=== PATIENT | female | born 2000 | race African-American/Black ===

== ENCOUNTER 2022-05-24 14:27 | Emergency (ER) | payer BC ==
[~2022-05-24] VITALS: Ht 172.7 cm; Wt 105.7 kg
[2022-05-24] MEDS ORDERED: PREDNISONE50 MG PO (16:45)
[2022-05-24] MEDS ORDERED: ONDANSETRON ODT4 MG PO (16:46)
== END 2022-05-24 16:58 | disposition home or self-care (01) ==
LOC: FSED 14:44
DX: R53.1 Weakness (principal); G35 Multiple sclerosis; H53.8 Other visual disturbances; J45.909 Unspecified asthma, uncomplicated
CPT/HCPCS: 81003; 81025; 99282

== ENCOUNTER 2024-07-27 09:03 | Inpatient (IN) | payer BC ==
[~2024-07-27] VITALS: Ht 172.7 cm; Wt 113.4 kg
[~2024-07-27 09:03] MED LIST: ONDANSETRON ODT4 MG PO; PREDNISONE50 MG PO
[2024-07-27 12:08] VITALS: BP 143/93; PULSE 127; RESP 19; TEMP 98.5; O2SAT 99
[2024-07-27] MEDS ORDERED: ALBUTEROL/IPRATROPIUM 3 ML NEB NEB PRN (12:45)
[2024-07-27] MEDS ORDERED: DOCUSATE SODIUM 100 MG CAP PO PRN (12:45)
[2024-07-27 12:57] VITALS: BP 143/93; PULSE 127; RESP 19; TEMP 98.5; O2SAT 99
[2024-07-27 13:03] VITALS: BP 143/93; PULSE 127; RESP 19; TEMP 98.5; O2SAT 99
[2024-07-27] MEDS ORDERED: LIDOCAINE HCL 1% 30ML-PF VIAL ONE (13:33)
[2024-07-27] MEDS ORDERED: VANCOMYCIN HCL 1.25 GM in SODIUM CHLORIDE 0.9% 250ML 250 ML IV SCH (14:00)
[2024-07-27] MEDS: HYDROMORPHONE 1MG/1ML INJ IV PRN (15:41)
[2024-07-27 16:18] VITALS: BP 154/107; PULSE 121; RESP 19; TEMP 98.1; O2SAT 99
[2024-07-27] MEDS: HYDROMORPHONE 1MG/1ML INJ ONE (16:20)
[2024-07-27] MEDS: ONDANSETRON HCL INJ 2MG/ML 2ML 2 MG/ML VIAL IV PRN (16:57)
[2024-07-27] MEDS: ENOXAPARIN SOD INJ 40 MG/0.4 ML SYR SC SCH (16:58)
[2024-07-27] MEDS ORDERED: BOTOX100 UNIT IV ×2 (17:01)
[2024-07-27] MEDS ORDERED: MIRALAX17 GM PO (17:01)
[2024-07-27] MEDS ORDERED: ZYRTEC10 M3 (17:01)
[2024-07-27] MEDS ORDERED: VITAMIN D31250 MCG (17:01)
[2024-07-27] MEDS ORDERED: MECLIZINE HCL12.5 MG PO (17:01)
[2024-07-27] MEDS ORDERED: TRANSDERM-SCOP1 EACH TD (17:01)
[2024-07-27] MEDS ORDERED: MAXALT10 MG (17:01)
[2024-07-27] MEDS ORDERED: AMBIEN5 MG PO (17:01)
[2024-07-27] MEDS ORDERED: BACLOFEN10 MG PO (17:01)
[2024-07-27] MEDS ORDERED: METHOCARBAMOL750 MG PO (17:01)
[2024-07-27] MEDS ORDERED: ONDANSETRON ODT8 MG PO (17:01)
[2024-07-27] MEDS ORDERED: BENADRYL25 M1 PO (17:01)
[2024-07-27] MEDS ORDERED: REMERON30 MG PO (17:01)
[2024-07-27] MEDS ORDERED: PULMICORT2 M1 (17:01)
[2024-07-27] MEDS ORDERED: MODAFINIL100 MG PO (17:01)
[2024-07-27] MEDS ORDERED: ALBUTEROL1.25 MG/3 NEB (17:01)
[2024-07-27] MEDS ORDERED: HYDROXYZIN10 MG/5 ML PO (17:01)
[2024-07-27] MEDS ORDERED: SYMBICORT 16010.2 GM INH (17:01)
[2024-07-27] MEDS ORDERED: DOXEPIN HCL25 MG PO (17:01)
[2024-07-27] MEDS ORDERED: PEPCID20 MG PO (17:01)
[2024-07-27] MEDS ORDERED: PROMETHAZINE HC25 M1 PO (17:01)
[2024-07-27] MEDS ORDERED: ATIVAN1 MG PO (17:01)
[2024-07-27] MEDS ORDERED: OMEPRAZOLE40 MG PO (17:01)
[2024-07-27 19:18] VITALS: BP 148/101; PULSE 128; RESP 18; TEMP 100.1; O2SAT 100
[2024-07-27 21:00] VITALS: BP 148/101; PULSE 128; RESP 18; TEMP 100.1; O2SAT 100
[2024-07-27] MEDS: VANCOMYCIN HCL 1.25 GM in SODIUM CHLORIDE 0.9% 250ML 250 ML IV SCH (22:30)
[2024-07-27] MEDS: ACETAMINOPHEN 325 MG TAB PO PRN (22:31)
[2024-07-27] MEDS: METOPROLOL TARTRATE INJ 1 MG/ML VIAL IV PRN (22:32)
[2024-07-27] MEDS: MELATONIN 3 MG TAB PO PRN (23:38)
[2024-07-28] VITALS (11 sets, daily range): BP systolic 113–160; BP diastolic 74–110; PULSE 72–138; RESP 17–22; TEMP 97.7–99.8; O2SAT 95–100
[2024-07-28] MEDS: LORATADINE 10 MG TAB PO SCH (12:37)
[2024-07-28] MEDS: ONDANSETRON HCL 4 MG ORAL DISINTEGRATING TAB PO PRN (18:19)
[2024-07-28] MEDS: ACETAMINOPHEN/CODEINE 300MG - 30MG TAB PO PRN (18:19)
[2024-07-28] MEDS: HYDROXYZINE HCL 25 MG TAB PO PRN (18:56)
[2024-07-28] MEDS: ALPRAZOLAM 0.5 MG TAB PO PRN (20:13)
[2024-07-29 08:13] VITALS: PULSE 88; RESP 20; O2SAT 97
[2024-07-29 09:33] VITALS: BP 113/74; PULSE 88; RESP 20; TEMP 98.6; O2SAT 97
[2024-07-29 12:10] VITALS: BP 124/79; PULSE 122; RESP 20; TEMP 97.6; O2SAT 100
[2024-07-29 15:06] VITALS: PULSE 97; RESP 20; O2SAT 97
[2024-07-29] MEDS ORDERED: DOXYCYCLINE HY100 MG PO (17:14)
[2024-07-29] MEDS ORDERED: TYLENOL325 MG PO (17:15)
[2024-07-29 17:37] VITALS: BP 122/95; PULSE 117; RESP 20; TEMP 98.2; O2SAT 100
[2024-07-29] MEDS: DOXYCYCLINE HYCLATE TABLET 100 MG TAB PO SCH (17:51)
== END 2024-07-29 21:01 | disposition home or self-care (01) | DRG 314 ==
LOC: MED/SURG2 11:59
PROVIDERS: ADMIT Internal Medicine; ATTEND Internal Medicine
PROC: 3E0333Z Introduction of Anti-inflammatory into Peripheral Vein, Percutaneous Approach (ICD-10-PCS; principal; 2024-07-27)
DX: T82.7XXA Infection and inflammatory reaction due to other cardiac and vascular devices, implants and grafts, initial encounter (principal); A41.1 Sepsis due to other specified staphylococcus; G35 Multiple sclerosis; G89.4 Chronic pain syndrome; J45.909 Unspecified asthma, uncomplicated; M79.7 Fibromyalgia; F43.10 Post-traumatic stress disorder, unspecified; F32.A Depression, unspecified; G47.00 Insomnia, unspecified; F90.9 Attention-deficit hyperactivity disorder, unspecified type
CPT/HCPCS: 74470; 87070; 93005; 94799; J0692; J1171; J1650; J2003; J2405; J3410; J7050; Q0162

== ENCOUNTER 2025-02-16 13:27 | Inpatient (IN) | payer BC ==
[~2025-02-16] VITALS: Ht 172.7 cm; Wt 119.5 kg
[~2025-02-16 13:27] MED LIST changes: +ALBUTEROL1.25 MG/3 NEB; +AMBIEN5 MG PO; +ATIVAN1 MG PO; +BACLOFEN10 MG PO; +BENADRYL25 M1 PO; +BOTOX100 UNIT IV; +DOXEPIN HCL25 MG PO; +DOXYCYCLINE HY100 MG PO; +HYDROXYZIN10 MG/5 ML PO; +MAXALT10 MG; +MECLIZINE HCL12.5 MG PO; +METHOCARBAMOL750 MG PO; +MIRALAX17 GM PO; +MODAFINIL100 MG PO; +OMEPRAZOLE40 MG PO; +ONDANSETRON ODT8 MG PO; +PEPCID20 MG PO; +PROMETHAZINE HC25 M1 PO; +PULMICORT2 M1; +REMERON30 MG PO; +SYMBICORT 16010.2 GM INH; +TRANSDERM-SCOP1 EACH TD; +TYLENOL325 MG PO; +VITAMIN D31250 MCG; +ZYRTEC10 M3
[2025-02-16] MEDS ORDERED: IVIG (14:00)
[2025-02-16] MEDS ORDERED: RITUXAN10 MG/1 ML (14:00)
[2025-02-16] MEDS: ONDANSETRON HCL INJ 2MG/ML 2ML 2 MG/ML VIAL IV STA (14:52)
[2025-02-16] MEDS: Morphine 4mg INJECTION 4 MG/ML INJ IV ONE (14:53)
[2025-02-16] MEDS: SODIUM CHLORIDE 0.9% 1000ML 1,000 ML IV ONE (14:53)
[2025-02-16] MEDS: DIPHENHYDRAMINE HCL INJ 50 MG/ML VIAL IV PRN (14:54)
[2025-02-16] MEDS ORDERED: Morphine 2mg Syringe 2 MG/ML SYR ONE (15:55)
[2025-02-16] MEDS: Morphine 2mg Syringe 2 MG/ML SYR IV ONE ×2 (16:02→17:28)
[2025-02-16] MEDS: DIPHENHYDRAMINE HCL INJ 50 MG/ML VIAL IV STA ×2 (16:19→17:27)
[2025-02-16] MEDS ORDERED: HYDROCODON-ACE1 EA11 PO ×2 (17:13→17:15)
[2025-02-16] MEDS: CYCLOBENZAPRINE HCL 10 MG TAB PO ONE (17:28)
[2025-02-16 17:29] VITALS: PULSE 100; RESP 16; TEMP 98.5
[2025-02-16] MEDS ORDERED: SODIUM CHLORIDE FLUSH 10 ML SYR INJ PRN (18:00)
[2025-02-16] MEDS ORDERED: HYDROMORPHONE 1MG/1ML INJ IV PRN (18:00)
[2025-02-16 20:00] VITALS: BP 150/86; PULSE 114; RESP 18; TEMP 97.9; O2SAT 97
[2025-02-16] MEDS: SODIUM CHLORIDE 0.9% 1000ML 1,000 ML IV SCH (20:24)
[2025-02-16] MEDS: HYDROMORPHONE 1MG/1ML INJ IV PRN (20:25)
[2025-02-16] MEDS: ONDANSETRON HCL INJ 2MG/ML 2ML 2 MG/ML VIAL IV PRN (20:29)
[2025-02-16] MEDS ORDERED: LEXAPRO5 MG PO (20:50)
[2025-02-16] MEDS ORDERED: BENADRYL25 M1 PO (20:51)
[2025-02-16] MEDS ORDERED: CAPSAICIN42.5 GM TOP (20:51)
[2025-02-16] MEDS ORDERED: VOLTAREN ARTHRI20 GM TP (20:51)
[2025-02-16] MEDS ORDERED: LYRICA150 MG PO (20:51)
[2025-02-16] MEDS ORDERED: BACLOFEN20 MG PO (20:51)
[2025-02-16] MEDS ORDERED: MELATONIN3 MG PO (20:51)
[2025-02-16 20:53] VITALS: BP 150/86; PULSE 114; RESP 18; TEMP 97.9; O2SAT 97
[2025-02-16] MEDS: Morphine 4mg INJECTION 4 MG/ML INJ IV PRN (22:29)
[2025-02-17] VITALS (11 sets, daily range): BP systolic 115–170; BP diastolic 86–114; PULSE 72–108; RESP 18–20; TEMP 97.2–98.2; O2SAT 95–100
[2025-02-17] MEDS: Morphine 2mg Syringe 2 MG/ML SYR IV PRN (04:40)
[2025-02-17] MEDS: DIPHENHYDRAMINE HCL INJ 50 MG/ML VIAL IV PRN (06:23)
[2025-02-17] MEDS: FAMOTIDINE 20 MG TAB PO SCH (07:43)
[2025-02-17] MEDS: BACLOFEN 10 MG TAB PO SCH (07:43)
[2025-02-17] MEDS: PREGABALIN 75 MG CAP PO SCH (07:44)
[2025-02-17] MEDS: ESCITALOPRAM OXALATE 10 MG TAB PO SCH (08:26)
[2025-02-17] MEDS: CAPSAICIN TOP SCH (08:26)
[2025-02-17 09:14] LABS: BASOPHILS % 0.2 % (0.0-1.0); EOSINOPHILS % 0.1 % (0.0-6.0); LYMPHOCYTES % 12.6 % (18.0-39.1); MONOCYTES % 9.7 % (4.4-11.3); NEUTROPHILS % 72.7 % (38.7-80.0); RED CELL DISTRIBUTION WIDTH 15.4 % (11.7-14.4)
[2025-02-17 09:47] LABS: EST GLOMERULAR FILTRATION RATE 132.0 ML/MIN (>=60)
[2025-02-17] MEDS: HYDROMORPHONE 1MG/1ML INJ IV PRN (12:29)
[2025-02-17] MEDS ORDERED: GADOBENATE DIMEGLUMINE 1 ML IV ONE (12:48)
[2025-02-17 12:53] LABS: T3 UPTAKE 34.2 % (22.5-37.0)
[2025-02-17] MEDS: LORAZEPAM INJ 2 MG/ML VIAL IV ONE (14:15)
[2025-02-17] MEDS ORDERED: METHYLPREDNISOLONE SOD SUCC 1,000 MG/8 ML VIAL IV SCH (14:15)
[2025-02-17] MEDS: DIPHENHYDRAMINE HCL INJ 50 MG/ML VIAL IV ONE (14:15)
[2025-02-17] MEDS: ACETAZOLAMIDE SODIUM 500 MG/VIAL IV SCH (18:09)
[2025-02-17] MEDS: METHYLPREDNISOLONE SOD SUCC 1,000 MG in SODIUM CHLORIDE 0.9% 250ML 250 ML IV SCH (18:29)
[2025-02-17] MEDS: MIRTAZAPINE 15 MG TAB PO SCH (21:13)
[2025-02-17] MEDS: MELATONIN 3 MG TAB PO SCH (21:13)
[2025-02-18] VITALS: BP 132/102; PULSE 83; RESP 18; TEMP 98; O2SAT 98
[2025-02-18] MEDS: HYDROCODONE/APAP 10MG-325MG TAB PO PRN (04:25)
[2025-02-18] MEDS ORDERED: METHYLPREDNISOLONE SOD SUCC 1,000 MG/8 ML VIAL IV SCH (09:00)
== END 2025-02-18 05:09 | disposition short-term general hospital (02) | DRG 59 ==
LOC: FSED 13:32 → MED/SURG3 17:57 → UNDOADMOB 18:03 → MED/SURG3 18:05 → UNDOADMOB 18:05 → OBSVTOIN 02-17 11:02
PROVIDERS: ADMIT Family Medicine Adult Medicine; ATTEND Family Medicine Adult Medicine
DX: G35.D Multiple sclerosis, unspecified (principal); M87.88 Other osteonecrosis, other site; Z68.41 Body mass index [BMI] 40.0-44.9, adult; G43.909 Migraine, unspecified, not intractable, without status migrainosus; I16.0 Hypertensive urgency; G93.2 Benign intracranial hypertension; E66.01 Morbid (severe) obesity due to excess calories; H53.8 Other visual disturbances; K58.9 Irritable bowel syndrome, unspecified; M25.561 Pain in right knee; M79.7 Fibromyalgia; G50.0 Trigeminal neuralgia; D57.3 Sickle-cell trait; J45.909 Unspecified asthma, uncomplicated; F43.10 Post-traumatic stress disorder, unspecified; Z86.711 Personal history of pulmonary embolism; Z86.718 Personal history of other venous thrombosis and embolism
CPT/HCPCS: 36415; 70553; 72156; 80048; 80053; 81025; 84436; 84443; 84479; 84702; 85025; 93970; 94799; 96374; 96375; 96376; 99284; G0378; J1171; J1200; J2060; J2270; J2405; J2470; J2919; J7030; J7050